=== PATIENT | male | born 1985 | race Caucasian/White ===

== ENCOUNTER 2017-02-01 15:16 | Emergency (ER) | payer OTHER ==
[2017-02-01 15:34] VITALS: BP 118/59; PULSE 85; RESP 16; TEMP 97.1; O2SAT 99
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
== END 2017-02-01 16:00 | disposition home or self-care (01) ==
LOC: H.ER 15:16
DX: S50.811A Abrasion of right forearm, initial encounter (principal); Y93.55 Activity, bike riding; Y92.410 Unspecified street and highway as the place of occurrence of the external cause